=== PATIENT | male | born 1940 | race Caucasian/White ===

== ENCOUNTER → 2018-01-24 | Day surgery (SDC) | payer MEDICARE, OTHER ==
[~2018-01-24] MED LIST: ASPIR 8181 MG PO; BENAZEPRIL-HCT1 EAC1 PO; DEXAMETHASONE SOD PHOS INJ 4 MG/ML VIAL ONE; FENTANYL CITRATE/PF 100MCG/2 ML INJ ONE; GENTAMICIN 120MG/NS 100ML 100 ML ONE; IOPAMIDOL 300MG/ML 50ML INFUS..BTL IV ONE; LEVOFLOXACIN 500MG/D5W 100ML 100 ML IV ONE; LIDOCAINE HCL 2% LOCAL INJ 5 ML SDV VIAL INJ ONE; ONDANSETRON HCL INJ 2 MG/ML VIAL ONE; PROPOFOL IV EMULSION 10 MG/ML 20 ML VIAL ONE; SEVOFLURANE INHAL SOLN 250 ML PEN BTL ONE; SIMVASTATIN20 MG PO; TAMSULOSIN HCL0.4 MG PO
--- NOTE | 2018-01-24 10:03 | Diagnostic Imaging Report ---
PROCEDURE: X-RAY CHEST, TWO VIEWS COMPARISON: None. INDICATIONS: PREOPERATIVE CHEST XRAY FOR PROSTATE SURGERY FINDINGS: LUNGS: No consolidations or edema. PLEURA: No pneumothorax. Small left pleural effusion. HEART \T\ MEDIASTINUM: The heart is within normal size-limits. Calcification within the aorta. BONES \T\ SOFT TISSUES: No acute findings. Mild degenerative changes of the spine. CONCLUSION: Small left pleural effusion. Jose Alfredo Dueñas D.O. Dictated by: Jose Alfredo Dueñas D.O. on 01/24/2018 at 10:02 Electronically approved by: Jose Alfredo Dueñas D.O. on 01/24/2018 at 10:02
--- NOTE | 2018-01-24 13:05 | Operative Report ---
DATE OF PROCEDURE: January 24, 2018 PREOPERATIVE DIAGNOSES 1. Benign prostatic hypertrophy. 2. Rule out carcinoma of the prostate. 3. Abnormal prostate-specific antigen. POSTOPERATIVE DIAGNOSES 1. Benign prostatic hypertrophy. 2. Rule out carcinoma of the prostate. 3. Abnormal prostate-specific antigen. 4. Enlarged occlusive prostate gland. OPERATIONS 1. Transrectal ultrasound of the prostate. 2. Transrectal ultrasound-guided needle biopsies. 3. Cystourethroscopy. ANESTHETIC: General. Mr. Chicas is a 77-year-old male who was referred with a chief complaint of lower urinary tract obstructive symptoms and elevated PSA. Rectal exam showed an enlarged prostate gland. There was a hard nodule on the right apex. This patient was placed on the table in the lithotomy position, and transrectal ultrasound of the prostate was performed and the prostate measured 6.13 x 3.55 x 4.99 cm with a total volume of 49.32. There was a hypoechoic area at the right apex which measured 15 x 11 mm. Transrectal ultrasound-guided needle biopsies were obtained from the hypoechoic area and also from the normal-appearing prostate to map it for any multifocal carcinoma. This patient was then prepped and draped in a sterile manner. A number 22.5 cystoscope was used, and cystourethroscopy was performed and it was noted that the urethra was normal. The prostatic urethra was about 4 cm long, bilobar and occlusive. Cystoscopy was then performed using both right-angle and the Foroblique lens, and it was noted that the bladder mucosa was normal with no evidence of gross tumor, pathology or any papillary lesion. The bladder wall was mildly trabeculated. Both ureteral orifices were seen and were within normal position, configuration, efflux. The bladder was drained, cystoscope removed, and patient taken to the recovery room in satisfactory condition. Plans for this patient are to be placed on Cipro 500 mg 1 twice a day for 1 week. Ultracet tablet 1 every 6-8 hours p.r.n. and was given 20. He is to return to the office in 1 week when at that time we will have the results of the biopsy and proceed with whatever indicated procedure. Job#: [id number]
== END | disposition home or self-care (01) ==
LOC: OR 08:20
PROVIDERS: ATTEND Specialist
DX: C61 Malignant neoplasm of prostate (principal); N41.1 Chronic prostatitis; N40.1 Benign prostatic hyperplasia with lower urinary tract symptoms; N13.8 Other obstructive and reflux uropathy; N32.89 Other specified disorders of bladder; I10 Essential (primary) hypertension; Z91.041 Radiographic dye allergy status; Z79.82 Long term (current) use of aspirin
CPT/HCPCS: 52000; 55700; 71046; 76872; 88305; J1100; J1580; J1956; J2001; J2405; 76942